=== PATIENT | female | born 1950 | race Hispanic/Latino ===

== ENCOUNTER 2018-07-12 08:04 | Observation (INO) | payer MEDICARE ==
[2018-07-11 13:48] VITALS: BMI 26.2
[2018-07-12 10:04] LABS: Hemoglobin 13.4 g/dL (12.0-16.0)
[2018-07-12 10:29] LABS: Anion Gap 10 mmol/L (10-20); BUN (Urea Nitrogen) 12 mg/dL (9.8-20.1); Calc. Creatinine Clearance 86 mL/min (70-130); Carbon Dioxide 27 mmol/L (23-31); Chloride 107 mmol/L (98-107); Estimated GFR-MDRD 82; Glucose 94 mg/dL (80-115); Potassium 3.7 mmol/L (3.5-5.1); Sodium 140 mmol/L (136-145)
[2018-07-12] MEDS ORDERED: Famotidine/PF 20 mg/2ml Vial ONE (11:41)
[2018-07-12] MEDS ORDERED: Fentanyl 100 MCG/2 ML VIAL ONE ×3 (11:41→14:11)
[2018-07-12] MEDS ORDERED: Lidocaine 1% w/Epinephrine 1:100K 30 ML VIAL ONE (11:42)
[2018-07-12] MEDS ORDERED: Ondansetron HCl/PF 4 MG/2 ML Vial ONE ×2 (12:09→15:05)
[2018-07-12] MEDS ORDERED: Dexamethasone 20 MG/5 ML VIAL ONE ×2 (12:09→15:05)
[2018-07-12] MEDS ORDERED: Bacitracin Zinc Ointment 30 gm TUBE ONE (12:57)
[2018-07-12] MEDS ORDERED: Morphine 4 MG/ML VIAL ONE (14:59)
[2018-07-12] MEDS ORDERED: PROPOFOL 200 MG/20 ML VIAL ONE (15:05)
[2018-07-12] MEDS ORDERED: Succinylcholine Chloride 20 MG/ML 10 ml SYRINGE FS ONE (15:05)
[2018-07-12] MEDS ORDERED: Lidocaine 1% PF 5 ML VIAL ONE (15:05)
--- NOTE | 2018-07-12 16:44 | EKG ---
Test Reason : PREOP Blood Pressure : / mmHG Vent. Rate : 056 BPM Atrial Rate : 056 BPM P-R Int : 206 ms QRS Dur : 102 ms QT Int : 360 ms P-R-T Axes : 063 017 017 degrees QTc Int : 347 ms Sinus bradycardia Nonspecific T wave abnormality Abnormal ECG No previous ECGs available Confirmed by DR. Wilner LUNA MD (4) on 07/12/2018 4:44:02 PM Referred By: MARTIN Confirmed By:DR. Wilner LUNA MD
[2018-07-12] MEDS ORDERED: HYDROcodone/Acetaminophen 5/325 mg Tablet ONE (17:11)
[2018-07-12 18:21] LABS: CKMB 1.6 ng/mL (0-6.6); Troponin I Less than 0.010 ng/mL (< 0.028)
[2018-07-12] MEDS ORDERED: Hydrocodone-Acetamin 15 ML UDCUP PO PRN (19:19)
[2018-07-12] MEDS ORDERED: Promethazine HCl 25 MG/ML VIAL SLOW IVP PRN (19:20)
[2018-07-12] MEDS ORDERED: Promethazine 25 MG TAB PO PRN (19:21)
[2018-07-12] MEDS ORDERED: Mag-Al 1200 mg/1200 mg/30 ML UDCUP PO PRN (19:35)
[2018-07-12] MEDS ORDERED: Calcium Carbonate 500 MG ChewTAB PO PRN (19:35)
[2018-07-12] MEDS ORDERED: Loratadine 10 MG TAB PO PRN (19:35)
[2018-07-12] MEDS ORDERED: cloNIDine 0.1 MG TAB PO PRN (19:35)
[2018-07-12] MEDS ORDERED: traMADol HCl 50 MG TAB PO PRN (19:35)
[2018-07-12] MEDS ORDERED: Ondansetron HCl/PF 4 MG/2 ML Vial IVP PRN (19:35)
[2018-07-12] MEDS ORDERED: Acetaminophen 325 MG TAB PO PRN (19:35)
[2018-07-12] MEDS ORDERED: hydrALAZINE 20 MG/ML VIAL SLOW IVP PRN (19:35)
[2018-07-12] MEDS ORDERED: Benzonatate 100 MG CAP PO PRN (19:35)
[2018-07-12] MEDS ORDERED: Diabetic Tussin 200 MG/10 ML UDCUP PO PRN (19:35)
[2018-07-12] MEDS ORDERED: Bisacodyl 5 MG TAB PO PRN (19:35)
[2018-07-12] MEDS ORDERED: Nitroglycerin 0.4 MG TAB (25 Tab Bottle) PO PRN (19:35)
[2018-07-12] MEDS ORDERED: Senokot 8.6 MG TAB PO PRN (19:35)
[2018-07-12] MEDS ORDERED: Aspirin 325 MG TAB PO SCH (19:45)
[2018-07-12] MEDS: Sodium Chloride 0.9% 1,000 ML IV SCH (20:33)
[2018-07-12] MEDS ORDERED: ALPRAZolam 0.25 MG TAB PO PRN (20:55)
[2018-07-12] MEDS ORDERED: Ciprofloxacin 0.3% Ophth Drops 2.5 ml Bottle R EYE SCH (21:00)
[2018-07-12] MEDS ORDERED: Latanoprost 0.005% Ophth Soln 2.5 ml Bottle L EYE SCH (21:00)
--- NOTE | 2018-07-12 21:27 | HP ---
DATE OF ADMISSION: 07/12/2018 PRIMARY CARE PHYSICIAN: Out of town, Dr. Najera. CHIEF COMPLAINT: Chest discomfort. HISTORY OF PRESENT ILLNESS: Ms. Weiss is a 68-year-old female without any significant past medical history who presented as a direct admit from PACU. History is mainly obtained by the patient herself and electronic medical records have been reviewed. Ms. 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 This was done by Dr. Reji Pickard. She reports that she has had this mass for about 2 years, bu t lately in the last 6 months, it has started to grow significantly. Shortly after surgery, she star nereyda to have some chest pressure and I was called for admitting this patient for further workup and ru le out acute coronary syndrome. At the time of my evaluation at bedside, the patient is still having symptoms of chest discomfort, th ough she appears otherwise comfortable. She does report that she has these symptoms on and off all t he time. She has thought that this was secondary to acid reflux because she does suffer from acid re flux and sometimes when she takes the antacid, the symptoms do go away. She reports any shortness of breath. She describes the pain as a pressure-like sensation coming from substernal area and going u nder her left breast to her back. A stat 12-lead EKG was done in PACU which did not have any specifi c ST or T-wave changes. Her heart rate was 56 with QTC interval of 347. Since presentation to the [facility], her vital signs have been stable. She has no arrhythmias on the tele monitor. She reports that she has never had any cardiac workup done but has strong family history of heart dis ease in her mother and in mother's side. She does have family history of breast cancer in her sister who in her 60s. The patient gets regular mammograms. PAST MEDICAL HISTORY: Acid reflux. PAST SURGICAL HISTORY: Parotid gland mass removal earlier today. SOCIAL HISTORY: She has no history of drug, tobacco or alcohol abuse. Currently and lives w ith her family. ALLERGIES: No known medication allergies. CURRENT MEDICATIONS: Ciprofloxacin eyedrops and Xalatan eyedrops. FAMILY HISTORY: Significant for breast cancer in her sister who in her 60s. Her brother had st omach cancer who also . Her mother had significant history of heart attack as well as str kimbrely. One of her sisters also had history of heart disease and stroke. CODE STATUS: FULL CODE discussed with the patient. REVIEW OF SYSTEMS. A 12-point review of systems was done. It is negative except for those mentioned in the history and physical. LABORATORY DATA: Hemoglobin 13.4, hematocrit 42.2. D-dimer 0.34. Serum chemistries unremarkable. Cardiac enzymes, BNP unremarkable. PHYSICAL EXAMINATION: VITAL SIGNS: Temperature 97.9, pulse of 67, respirations 14, saturating 95% on room air, blood press ure 131/76. GENERAL: No acute distress, awake, alert, oriented x3. HEENT: Mucous membrane is moist and pink. No oropharyngeal exudate or erythema. Head is normocepha lic, atraumatic. Pupils are equal, reactive to light and accommodation. Extraocular movement intact . NECK: Supple without any lymphadenopathy, JVD or bruit. CHEST: Clear to auscultation without any wheezing, rales or rhonchi. CARDIOVASCULAR: Rate and rhythm is regular without any murmur, rubs or gallops. ABDOMEN: Soft, nontender, nondistended with positive bowel sounds. EXTREMITIES: Free of any cyanosis, clubbing, or edema. NEUROLOGIC: Nonfocal. SKIN: Free of any rashes or bruises. Feels warm and dry to touch. PSYCHIATRIC: Normal affect. IMPRESSION AND PLAN: 1. Chest discomfort and chest pain. The patient's symptoms are rather chronic and the differential is lost including gastroesophageal reflux disease versus anxiety versus coronary artery disease. Car diac enzymes and EKG do not suggest ACS at this time. The patient does have multiple risk factors an d will be admitted for further risk stratification. We will obtain a nuclear medicine stress test in the morning and continue with serial cardiac enzymes. She will be started on a daily dose of aspiri n until ACS is ruled out. We will also provide her with proton pump inhibitor in case her symptoms a re due to gastroesophageal reflux disease. We will also add Xanax p.r.n. and obtain a chest x-ray to rule out any aspiration pneumonitis, widening of the mediastinum to rule out aortic dissection. The patient is hemodynamically stable and the possibility of dissection is very low at this time. She w ill be admitted on telemetry unit. We will also check a lipid profile in the morning and repeat the labs in the morning as well. 2. Start her on gentle IV fluid hydration and she will be n.p.o. after midnight. 3. Status post parotid gland mass removal. The patient will follow up with Dr. Pickard in the outpat ient setting for the biopsy results. 4. Deep venous thrombosis and gastrointestinal prophylaxis. 5. Code status: FULL CODE. Discussed with the patient. DISPOSITION: Ms. Weiss is currently being admitted under observation status for further workup of c hest pain and pressure that happened in the postoperative period as above. Further management will d epend upon her clinical course.
--- NOTE | 2018-07-12 21:27 | RAD ---
RADIOGRAPH CHEST 1 VIEW: 07/12/18 HISTORY: 68-year-old female with chest pain. FINDINGS: There are no air space densities, pulmonary edema, pneumothorax, or cardiomegaly. The lateral costop hrenic angles are sharp. IMPRESSION: No acute cardiopulmonary findings. virgilio [] POS: [facility]
[2018-07-12 22:43] LABS: Troponin I Less than 0.010 ng/mL (< 0.028)
[2018-07-13 01:47] LABS: Troponin I Less than 0.010 ng/mL (< 0.028)
[2018-07-13 06:05] LABS: #Basophils 0.1 thou/uL (0.0-0.2); #Lymphocytes 1.9 thou/uL (1.20-3.40); #Monocytes 0.5 thou/uL (0.11-0.59); #Neutrophils 8.7 thou/uL (1.40-6.50); %Basophils 0.9 % (0.0-1.0); %Eosinophils 0.1 % (0.0-10.0); %Lymphocytes 16.7 % (21.0-51.0); %Monocytes 4.5 % (0.0-10.0); %Neutrophils 77.8 % (42.0-75.0); Mean Corpuscular HGB CONC 32.5 g/dL (32.0-36.0); Mean Corpuscular Hemoglobin 29.1 pg (27.0-31.0); Mean Corpuscular Volume 89.5 fL (78.0-98.0); Mean Platelet Volume 7.5 fL (7.4-10.4); Platelet Count 257 thou/uL (130-400); RBC Distribution Width 13.1 % (11.5-14.5); Red Blood Cell (RBC) Count 4.13 mill/uL (4.20-5.40); White Blood Cell (WBC) Count 11.1 thou/uL (4.8-10.8)
[2018-07-13 06:20] LABS: Anion Gap 9 mmol/L (10-20); BUN (Urea Nitrogen) 8 mg/dL (9.8-20.1); Calc. Creatinine Clearance 97 mL/min (70-130); Calcium 8.2 mg/dL (7.8-10.44); Carbon Dioxide 24 mmol/L (23-31); Cardiac Risk 5.7 (Less than 4.5); Chloride 110 mmol/L (98-107); Cholesterol 239 mg/dl (< 200 Desired); Estimated GFR-MDRD Greater than 90; Glucose 110 mg/dL (80-115); HDL Cholesterol 42 mg/dL (>60 Neg Risk); LDL Cholesterol, Calculated 174 mg/dL; Potassium 3.8 mmol/L (3.5-5.1); Sodium 139 mmol/L (136-145); Triglycerides 115 mg/dL (Less than 150)
[2018-07-13] MEDS ORDERED: Aspirin 325 MG TAB PO SCH (09:00)
[2018-07-13] MEDS ORDERED: Enoxaparin Sodium 40 MG/0.4 ML SYRINGE SC SCH (09:00)
[2018-07-13] MEDS ORDERED: Regadenoson 0.4 MG/5 ML SYRINGE ONE (10:51)
[2018-07-13] MEDS: CIPROFLOXACIN OPTH 0.3% L EYE SCH ×2 (11:09→14:16)
[2018-07-13 12:33] VITALS: BP 139/71; TEMP 97.2
[2018-07-13] MEDS: Sodium Chloride 0.9% 1,000 ML IV SCH (14:15)
--- NOTE | 2018-07-13 14:21 | NM ---
CARDIAC SPECT: HISTORY: A 68-year-old female with chest pain. TECHNIQUE: A myocardial perfusion scan is performed using the single-isotope 1-day protocol with Technetium 99m sestamibi. Ten mCi were injected intravenously for the rest exam followed by 32 mCi for the stress s tudy. Pharmacologic stress with LexiScan is monitored and interpreted by Dr. Negron. FINDINGS: Homogeneous tracer distribution is seen in the myocardial segments on stress and rest images without fixed or reversible defects. GATED SPECT LVEF: 84%. WALL MOTION EXAM: Normal. IMPRESSION: Normal myocardial perfusion scan. POS: [facility]
--- NOTE | 2018-07-13 15:17 | EKG ---
Test Reason : Blood Pressure : / mmHG Vent. Rate : 063 BPM Atrial Rate : 063 BPM P-R Int : 182 ms QRS Dur : 110 ms QT Int : 426 ms P-R-T Axes : 060 016 080 degrees QTc Int : 435 ms Normal sinus rhythm T wave abnormality, consider lateral ischemia Abnormal ECG When compared with ECG of 12-JUL-2018 10:15, QT has lengthened Confirmed by CHERYL CASAS, SAlona (4) on 07/13/2018 3:16:31 PM Referred By: SHAY Confirmed By:DR. Wilner LUNA MD
[2018-07-13] MEDS ORDERED: Latanoprost 0.005% Ophth Soln 2.5 ml Bottle R EYE SCH (21:00)
--- NOTE | 2018-07-13 21:08 | OP ---
PREOPERATIVE DIAGNOSIS: Right parotid mass. POSTOPERATIVE DIAGNOSIS: Right parotid mass. PROCEDURES PERFORMED: Right superficial parotidectomy with facial nerve monitor. SURGEON: Reji Pickard M.D. DIE CUTTER OPERATOR: ANNELIESE Barrett ANESTHESIA: GETA. ESTIMATED BLOOD LOSS: 20 mL COMPLICATIONS: None. DESCRIPTION OF PROCEDURE: Patient was taken to the operating room and placed supine on the table. G eneral endotracheal anesthesia was obtained by the Anesthesia staff. Tube was secured in the left lo wer lip. Shoulder roll was placed. A head of bed was then turned 90 degrees. Patient was then prep ped and draped for standard surgical procedure. On this, 8 mL of 1% lidocaine with 1:100,000 epineph rine was injected into the skin area overlying a modified Renaldo incision anticipated for the right si de. Following this, 15 blade was used to create an incision through skin and subcuticular tissue sta marcin at least 1 cm around the earlobe. Following this, a fat up at down flap was elevated over the p arotid gland. Following this, dissection was then carried inferiorly with a large mass was noted to be at the inferior base of the parotid tail. The sternocleidomastoid and inferior portions of the pa rotid gland were then . Dissection was then carried down the mastoid bone using the tragal cartilage as identification and the stone of the tympanomastoid suture line as landmark. The facial nerve was identified and was dissected until the superior and inferior divisions were identified. Fo llowing the inferior divisions out and freeing the parotid mass from these lower 2 inferior nerves, a llowed for complete removal of this large right-sided parotid mass and an adjacent cuff of tissue. F ollowing this, the wound was irrigated. Hemostasis was then placed. The wound was then closed with a drain and was also closed using Monocryl stitches for the deep stitches and Vicryl stitches for the skin. The facial nerve monitor was set up prior to the procedure and remained on and was monitored by Physician Masonry Installer throughout the procedure. The patient tolerated procedure well.
--- NOTE | 2018-07-13 23:00 | DIS ---
DATE OF ADMISSION: 07/12/2018 DATE OF DISCHARGE: 07/13/2018 CONDITION AT THE TIME OF DISCHARGE: Stable and improved. DISCHARGE DIAGNOSES: 1. Chest discomfort noncardiac, atypical likely gastroesophageal reflux disease. 2. Status post parotid mass removal on 07/12/2018. DISCHARGE MEDICATIONS: Remain the same as admission medication. NEW MEDICATIONS: Protonix 40 mg daily. PRIMARY CARE PHYSICIAN: Dr. Neelam Amezquita, out of town. PROCEDURES DONE IN THE HOSPITAL: Nuclear medicine stress test, which is negative for any ischemia or scar. EF 84%. HISTORY OF PRESENTING ILLNESS: Ms. Weiss is a 68-year-old female who underwent a parotid mass remov al on the right side of the neck under care of Dr. Pickard and shortly after the procedure started to complain of chest discomfort, so I was called for admission. Initial EKG and cardiac enzymes, labs w ere unremarkable. She was admitted in observation status on telemetry unit. Please see admission hi story and physical for further details. D-dimer was negative. HOSPITAL COURSE: Serial cardiac enzymes were trended and troponin was less than 0.010 x3 with normal CK-MB. BNP was normal. She did have mild elevation of total cholesterol at 239. She underwent a s tress test, which was normal with good EF. She was discharged to follow with primary care physician. Her symptoms are likely secondary to gastroesophageal reflux disease, as she describes these sympto ms happening again and again and mainly starting in the epigastric area going up and feels like heart burn. She will give Protonix try about a month and follow up with PCP. She is instructed to follow up with Dr. Pickard with regard to her postop care, which she verbalized understanding. She was seen and examined prior to discharge. PHYSICAL EXAMINATION: This morning, VITAL SIGNS: Temperature 97.2, pulse of 83, respirations 16, saturating 96% on room air, blood press ure 139/71. GENERAL: No acute distress, awake, alert, and oriented x3. Surgical site is clean without any dehis cence or discharge. She does have the drain coming out from the right neck or from the surgical site with scant clear to bloody discharge. CHEST: Clear to auscultation bilaterally. HEART: Rate and rhythm is regular. EXTREMITIES: Free of any edema. Discharge plan was discussed with the patient and her family who verbalized understanding.
== END 2018-07-13 16:20 | disposition home or self-care (01) ==
LOC: SDC 08:04 → 2SW 17:26
PROVIDERS: ADMIT Internal Medicine; ATTEND Internal Medicine
PROC: 0CBB0ZZ Excision of Right Parotid Duct, Open Approach (ICD-10-PCS; principal; 2018-07-12)
DX: D11.0 Benign neoplasm of parotid gland (principal); R07.89 Other chest pain; K21.9 Gastro-esophageal reflux disease without esophagitis; Z79.2 Long term (current) use of antibiotics
CPT/HCPCS: 42415; 71045; 78452; 80048 ×2; 80061; 82553; 83880; 84484 ×3; 85014; 85018; 85025; 85379; 88307; 93005; 93017; 94760; 96361 ×2; 96374; 96375; 97139; A9500; G0378; 36415; 93010; J0131; J1100; J1650; J2001; J2270; J2405; J2704; J2785; J3010; S0028